=== PATIENT | female | born 1955 | race Caucasian/White ===

== ENCOUNTER 2018-04-01 13:12 | Emergency (ER) | payer SELFPAY ==
[2018-04-01 13:51] VITALS: BP 152/92
[2018-04-01] MEDS ORDERED: Phenylephrine 0.5% NASAL* BTL RIGHT NARE ONE (14:39)
--- NOTE | 2018-04-01 15:07 | RAD ---
INDICATION: Left wrist pain COMPARISON: None TECHNIQUE: AP, lateral, navicular and oblique views were obtained. FINDINGS: There is no acute bony change. There is minor osteoarthritis about the base of the thumb. The joint spaces are maintained. The soft tissues are intact. IMPRESSION: MINOR OSTEOARTHRITIS.
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
--- NOTE | 2018-04-01 15:12 | RAD ---
INDICATION: Fall. Intracranial injury COMPARISON: None TECHNIQUE: Noncontrast axial source images were acquired from the skull base to the vertex. FINDINGS: Ventricles/sulci: The ventricles and cisterns are normal in size and configuration for age. Brain parenchyma: There is no focal parenchymal finding, evidence of intracranial mass, or intracranial mass effect. Intracranial hemorrhage:None. Extra-axial spaces: There are no abnormal extra axial fluid collections or evidence of extra-axial mass. Calvarium: There is no calvarial fracture or other calvarial abnormality. Scalp: There is no evidence of scalp or extracalvarial soft tissue abnormality. Paranasal sinuses/mastoid: The paranasal sinuses and mastoid air cells are clear. Other: None. IMPRESSION: NEGATIVE EXAMINATION
--- NOTE | 2018-04-01 15:20 | RAD ---
INDICATION: Facial injury COMPARISON: None TECHNIQUE: Axial source images were acquired from the vertex of the mandible through the orbits. Coronal and sagittal reconstructed images were acquired. FINDINGS: Bones: There is no acute facial bone fracture. Orbits: The globes and intraconal structures appear intact. The optic nerves are symmetric. Extraocular muscles appear normal. There is no intraconal inflammatory change or retrobulbar mass.. Paranasal sinuses: There are findings of chronic sinusitis of the maxillary antra. There are no air-fluid levels. Brain: There are no acute abnormalities of the visualized brain parenchyma. Soft tissues: Normal Other: Evaluation of the teeth is limited due to dental amalgam artifact The visualized soft tissue elements about the neck appear normal. There is moderate osteoarthritic change about C5-C6. IMPRESSION: NO ACUTE FACIAL BONE FRACTURE. FINDINGS OF MILD CHRONIC MAXILLARY ANTRAL SINUSITIS
== END 2018-04-01 15:35 | disposition home or self-care (01) ==
LOC: UCEAST 13:12
DX: S69.92XA Unspecified injury of left wrist, hand and finger(s), initial encounter (principal); S00.83XA Contusion of other part of head, initial encounter; S01.511A Laceration without foreign body of lip, initial encounter; X58.XXXA Exposure to other specified factors, initial encounter; R03.0 Elevated blood-pressure reading, without diagnosis of hypertension; V19.9XXA Pedal cyclist (driver) (passenger) injured in unspecified traffic accident, initial encounter; Y93.55 Activity, bike riding; Y92.9 Unspecified place or not applicable
CPT/HCPCS: 70450; 70486; 99212; A9270-GY; G0463